=== PATIENT | male | born 1945 | race Caucasian/White ===

== ENCOUNTER 2021-09-28 10:41 | Day surgery (SDC) | payer OTHER, SELFPAY ==
--- NOTE | 2021-09-28 | PATH_ITS ---
[facility] Accession Number: [id number] . 01 Material submitted: . colon - TRANSVERSE COLON POLYP . 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 MRV 10/03/2021 1041 Local . 02 Electronically signed: . Tania Cooley MD, Pathologist NPI- [id number] . 01 Gross description: . TRANSVERSE COLON POLYP: Received in formalin are 3 fragment(s) of jones, soft tissue measuring 0.3 x 0.3 x 0.3 cm to 0.7 x 0.5 x 0.5 cm submitted entirely in 1 cassette(s) /ARNOLDO 09/29/2021 2205 Local . 02 Pathologist provided ICD-10: D12.3 . 02 CPT . 592904 Specimen Comment: A courtesy copy of this report has been sent to [phone] Performed at: [address] [facility] Cyt[facility] [address] [facility] [address], [place], [place] [id number] MD Chauncey Byrd MD Phone: [phone] Performed at: 02 [facility] [address] [place], [place] [id number] MD Tania Cooley MD Phone: [phone]
[2021-09-28 11:21] VITALS: BP 151/88; PULSE 84; RESP 18; TEMP 36.4; O2SAT 95; BMI 31.6
[2021-09-28 11:24] LABS: COVID19 -Nasal RAPID Negative (Negative)
[2021-09-28] MEDS: SODIUM CHLORIDE 0.9% 1,000 ML 84 ML IV (11:37)
--- NOTE | 2021-09-28 12:16 | PM.HP.1 ---
History of Present Illness History of Present Illness Date Patient Seen: 09/28/21 Chief complaint: SDC Narrative: Colonoscopy for screening. History of colon polyps 3 years ago Patient History Medical History (Updated 09/28/21 @ 11:13 by Elizabeth Cabrera, RN) Knee cartilage, torn, left Surgical History (Updated 09/28/21 @ 11:12 by Elizabeth Cabrera RN) H/O carotid endarterectomy Family & Social History Social History: household members spouse Tobacco & Substance use: Tobacco type cigarettes Smoking Status Former smoker alcohol intake never Substance Use Type does not use Meds Home Medications and Allergies Home Medications Medication Instructions Recorded Confirmed Type aspirin 81 mg capsule 81 mg PO DAILY 09/28/21 09/28/21 History finasteride 5 mg tablet 5 mg PO DAILY 09/28/21 09/28/21 History hydrochlorothiazide 25 mg tablet 25 mg PO DAILY 09/28/21 09/28/21 History levothyroxine 150 mcg tablet 150 mcg PO DAILY 09/28/21 09/28/21 History losartan 50 mg tablet 50 mg PO DAILY 09/28/21 09/28/21 History omeprazole 20 mg capsule,delayed 20 mg PO BID 09/28/21 09/28/21 History release simvastatin 10 mg tablet 10 mg PO BEDTIME 09/28/21 09/28/21 History tamsulosin 0.4 mg capsule 0.4 mg PO BEDTIME 09/28/21 09/28/21 History Allergies Allergy/AdvReac Type Severity Reaction Status Date / Time No Known Drug Allergies Allergy Verified 09/28/21 11:13 Exam Vital Signs (past 8 hours): - 09/28/21 11:21 Temperature 97.6 F Pulse Rate 84 Respiratory Rate 18 Blood Pressure 151/88 H Pulse Oximetry 95 Oxygen Delivery Method Room Air Narrative Exam Narrative: Oropharynx free of lesions Chest clear to auscultation percussion Cardiac exam reveals no S3 or murmur Objective Labs Labs: Laboratory Results - last 24 hr 09/28/21 11:01 SARS-CoV-2 (PCR) Negative Assessment & Plan Assessment & Plan narrative: History of colon polyps need for follow-up colonoscopy. Risks, benefits, alternatives have been explained. Time Spent With Patient Critical Care time: I spent a total of [] minutes of critical care time on this patient's care today; this time is exclusive of procedural time.
--- NOTE | 2021-09-28 12:18 | PM.OP.COLON ---
Operative Date/Time/Diagnoses Date of procedure: 09/28/21 Pre-op diagnosis: See indication and findings Procedure & Clinicians Study performed: Colonoscopy Indications: History of colon polyps Surgeon: Teofilo Thonrton Procedure Notes Procedure in detail: After informed consent was obtained the patient was placed in left lateral decubitus position. The video colonoscope was introduced the rectum slowly advanced cecum. Preparation was good. On slow withdrawal mucosa was carefully examined. The scope was removed. The patient tolerated procedure well. Blood loss none Complications none Sedation mac Findings 1. Scattered sigmoid diverticulosis 2. 6 mm polyp in the transverse colon cold snared and removed completely 3. Otherwise negative colonoscopy to cecum Will follow up on the pathology here but he may need follow-up colonoscopy in 5 years.
[2021-09-28 12:19] VITALS: BP 120/72; PULSE 70; RESP 18; TEMP 36.3; O2SAT 95
[2021-09-28 12:24] VITALS: BP 119/71; PULSE 73; RESP 14; O2SAT 95
[2021-09-28 12:30] VITALS: BP 128/68; PULSE 67; RESP 18; O2SAT 94
[2021-09-28 12:35] VITALS: BP 139/76; PULSE 70; RESP 18; O2SAT 94
[2021-09-28 12:43] VITALS: BP 148/94; PULSE 75; RESP 18; TEMP 36.7; O2SAT 95
== END 2021-09-28 13:03 | disposition home or self-care (01) ==
PROVIDERS: Referring Provider Internal Medicine Gastroenterology; Visit Provider Internal Medicine Gastroenterology
PROC: 0DJD8ZZ Inspection of Lower Intestinal Tract, Via Natural or Artificial Opening Endoscopic (ICD-10-PCS; CPT 45378; principal; 2021-09-28 11:00)
DX: Z12.11 Encounter for screening for malignant neoplasm of colon (principal); Z86.010 Personal history of colon polyps; K57.30 Diverticulosis of large intestine without perforation or abscess without bleeding; D12.3 Benign neoplasm of transverse colon
CPT/HCPCS: 45385; 87635; C9803; J2704